=== PATIENT | female | born 1995 | race Caucasian/White ===

== ENCOUNTER 2022-10-22 13:20 | Inpatient (IN) ==
--- NOTE | 2022-10-22 13:36 | Emergency Department Note ---
Impression & Plan Depression ADMIT ED Provider Note HPI: The patient is a 27-year-old female with history of bipolar disorder, who presents emergency department with a chief complaint of suicidal thoughts. Patient states she is currently about 18 weeks . Patient states that la alejandro found out she was in June when she went to [facility] for psychiatric evaluation. Patient states she has not been taking any psychiatric medications since that time secondary to her . Patient states that she believes she is having issues because she is not on medications, she is having thoughts of self-harm, denies a specific plan to kill herself but states that she is frequently having impulsive thoughts of harming herself, mentions that several days ago she was banging her head against the door. She states she does not know why she did this. Patient states she is also seeing "shadows" as well as "bugs" which she is not hearing any voices. On arrival here to the ED the patient is alert and oriented, she denies any recent alcohol or drug use, she appears well-groomed, states that she is currently homeless and she has been staying with various relatives and friends on different nights. Patient states that she would like to check her self in for psychiatric evaluation under 201. ROS: - Per HPI *Outpatient medications and allergy history reviewed. *Pertinent external medical records reviewed. PE: General: Alert HEENT: Normocephalic, trachea midline Eyes: Extraocular eye movement is intact, no scleral erythema Pulmonary: Clear to auscultation bilaterally, no wheezing Cardio: Regular rate and rhythm GI: Abdomen is soft, nontender : No suprapubic tenderness MSK: No evidence of trauma or malformation of the extremities, no edema Skin: No evidence of rash Neuro: Alert, no focal deficits Psychiatric: Cooperative Medical Decision Making: Patient presented to the emergency department today with multiple concerns, she does have a history of depression and bipolar disorder, states she has been feeling increasingly depressed recently, she is having some visual hallucinations, she is having intermittent outbursts where she feels impulsive to harm herself. She denies any specific plan to kill herself but states that she is having thoughts of self-harm. In addition, patient states that she is currently homeless, she is also 18 weeks . Patient was medically assessed here in the ED and screening labs were obtained, urine drug screen is positive for amphetamines and marijuana, lab work shows slight hypokalemia 3.1 which was ordered for oral repletion. Patient remained otherwise calm and cooperative and in no acute distress while here in the ED, she was accepted at [address] [place] [address] for inpatient psychiatric care under 201. Diagnosis: 1. Major depression with thoughts of self-harm 2. Homelessness 3. Second trimester Disposition: Admission to psychiatry Davin Ray DO Emergency Medicine Past Med/Surg History Medical History (Updated 10/22/22 @ 18:32 by Davin Ray DO) Bipolar disorder Surgical History (Updated 04/26/22 @ 15:16 by Una Huertas PA-C) History of appendectomy Hx of tonsillectomy Family History (Updated 09/20/22 @ 15:37 by Mojgan Ragsdale LPN) Grandmother (Maternal) Leukemia Heart disease Uncle Diabetes Father Heart disease Grandfather (Paternal) Prostate cancer Denies family history of Ovarian cancer Breast cancer Colorectal cancer Social History (Updated 10/21/22 @ 16:57 by Renay Cleaning) Smoking Status: Current every day smoker Tobacco Type: Cigarettes Cigarettes Per Day: 5-6; Second Hand Exposure: No; Hx Alcohol Use: No Hx Substance Use: No Preferred Language: Swedish marital status: Single marital status details: FOJessica: Pankaj (19) [phone] ok to talk wtih fob's mom if needed. Current Living Situation: Significant Other Current Living Situation Comment: lives with fob, fobs mom and roommate. 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 How many Children do You have: 1 Feels Safe at Home: Yes Gender Identity: Female Allergies Allergies Allergy/AdvReac Type Severity Reaction Status Date / Time medroxyprogesterone AdvReac Verified 10/21/22 16:39 [From Depo-Provera] Home Meds Home Medications Medication Instructions Recorded Confirmed prenat.vits,ravi,[id number] 1 tab PO DAILY 09/20/22 10/22/22 Results & Data (ED) Vital Signs Vital Signs - 24 hr 10/22/22 13:21 Temperature 36.6 C Temperature Source Temporal Artery Scan Pulse Rate 112 H Respiratory Rate 18 Respiratory Effort / Characteristics Non-Labored Spontaneous Respiratory Depth Normal Respiratory Pattern Regular Blood Pressure 136/82 Blood Pressure Mean 100 Blood Pressure Position Sitting Pulse Oximetry 100 Oxygen Delivery Method Room Air Sepsis Recent Fever Within 48 Hours No Sepsis New/Unexplained Change in Mental Status N/A Sepsis Action Taken by Nursing No Action Required Laboratory Data 10/22/22 13:44 10/22/22 13:44 Lab Results 10/22/22 10/22/22 10/22/22 Range/Units 13:44 13:44 13:44 WBC 9.07 (4.8-10.8) K/ul RBC 4.01 L (4.20-5.40) M/uL Hgb 12.7 (12.0-16.0) g/dl Hct 38.0 (37.0-47.0) % MCV 94.8 (80.0-100.0) fL MCH 31.7 (25.0-34.0) pg MCHC 33.4 (32.0-36.0) g/dL RDW Std Deviation 44.5 (36.4-46.3) fL RDW Coeff of Amari 12.7 (11.5-14.5) % Plt Count 260 (130-400) K/uL MPV 9.5 (9.4-12.4) fL Immature Gran % (Auto) 0.7 % Neut % (Auto) 68.5 % Lymph % (Auto) 22.6 % [place] % (Auto) 7.1 % Eos % (Auto) 0.9 % Baso % (Auto) 0.2 % Neut # (Auto) 6.22 (1.40-6.50) K/uL Lymph # (Auto) 2.05 (1.2-3.4) K/uL [place] # (Auto) 0.64 H (0.11-0.59) K/uL Eos # (Auto) 0.08 (0-0.50) K/uL Baso # (Auto) 0.02 (0-0.2) K/uL Immature Gran # (Auto) 0.06 (0.01-0.20) K/uL Sodium 137 (136-145) mmol/L Potassium 3.1 L (3.5-5.1) mmol/L Chloride 102 (98-107) mmol/L Carbon Dioxide 29 (21-32) mmol/L Anion Gap 6 (3-11) BUN 7 (6-23) mg/dl Creatinine 0.49 L (0.6-1.2) mg/dl Est Cr Clr Drug Dosing 182.1 ml/min Est GFR ( Amer) > 150.0 ml/min Est GFR (Non-Af Amer) 135.4 ml/min BUN/Creatinine Ratio 14.3 (10-20) Glucose 92 (70-99(Fasting)) mg/dl Calcium 9.8 (8.5-10.1) mg/dl Total Bilirubin 0.5 (0.2-1.0) mg/dl AST 11 L (13-39) U/L ALT 15 (7-52) U/L Alkaline Phosphatase 48 (34-104) U/L Total Protein 7.6 (6.0-8.3) gm/dl Albumin 4.3 (3.4-5.0) gm/dl Globulin 3.3 (2.5-4.0) gm/dl Albumin/Globulin Ratio 1.3 (0.9-2) TSH 1.124 (0.300-4.500) uIu/ml Urine Color Urine Appearance (Clear) Urine pH (4.5-7.5) Ur Specific [place] (1.000-1.030) Urine Protein (Negative) Urine Glucose (UA) (Negative) Urine Ketones (Negative) Urine Blood (Negative) Urine Nitrite (Negative) Urine Bilirubin (Negative) Urine Urobilinogen (Negative) Ur Leukocyte Esterase (Negative) Urine WBC (Auto) (0-5) /hpf Urine RBC (Auto) (0-4) /hpf U Hyaline Cast (Auto) (0-5) /lpf U Epithel Cells (Auto) (0-5) /lpf Urine Bacteria (Auto) (Negative) Salicylates (3.0-30) mg/dl Urine Opiates Screen (Neg) Ur Methadone, Qual (Neg) Acetaminophen (10-30) ug/ml Urine Barbiturates (Neg) Ur Phencyclidine (PCP) (Neg) U Amphetamin/Meth Scrn (Neg) MDMA (Ecstasy) Screen (Neg) U Benzodiazepines Scrn (Neg) Ur Cocaine Metabolite (Neg) U Marijuana (THC) Screen (Neg) Ethyl Alcohol mg/dL (<10.0) mg/dl SARS-CoV-2, RNA, NAAT (NEGATIVE) 10/22/22 10/22/22 10/22/22 Range/Units 13:44 13:44 13:44 WBC (4.8-10.8) K/ul RBC (4.20-5.40) M/uL Hgb (12.0-16.0) g/dl Hct (37.0-47.0) % MCV (80.0-100.0) fL MCH (25.0-34.0) pg MCHC (32.0-36.0) g/dL RDW Std Deviation (36.4-46.3) fL RDW Coeff of Amari (11.5-14.5) % Plt Count (130-400) K/uL MPV (9.4-12.4) fL Immature Gran % (Auto) % Neut % (Auto) % Lymph % (Auto) % [place] % (Auto) % Eos % (Auto) % Baso % (Auto) % Neut # (Auto) (1.40-6.50) K/uL Lymph # (Auto) (1.2-3.4) K/uL [place] # (Auto) (0.11-0.59) K/uL Eos # (Auto) (0-0.50) K/uL Baso # (Auto) (0-0.2) K/uL Immature Gran # (Auto) (0.01-0.20) K/uL Sodium (136-145) mmol/L Potassium (3.5-5.1) mmol/L Chloride (98-107) mmol/L Carbon Dioxide (21-32) mmol/L Anion Gap (3-11) BUN (6-23) mg/dl Creatinine (0.6-1.2) mg/dl Est Cr Clr Drug Dosing ml/min Est GFR ( Amer) ml/min Est GFR (Non-Af Amer) ml/min BUN/Creatinine Ratio (10-20) Glucose (70-99(Fasting)) mg/dl Calcium (8.5-10.1) mg/dl Total Bilirubin (0.2-1.0) mg/dl AST (13-39) U/L ALT (7-52) U/L Alkaline Phosphatase (34-104) U/L Total Protein (6.0-8.3) gm/dl Albumin (3.4-5.0) gm/dl Globulin (2.5-4.0) gm/dl Albumin/Globulin Ratio (0.9-2) TSH (0.300-4.500) uIu/ml Urine Color Dark Yellow Urine Appearance Cloudy A (Clear) Urine pH 6.0 (4.5-7.5) Ur Specific [place] 1.027 (1.000-1.030) Urine Protein Negative (Negative) Urine Glucose (UA) Negative (Negative) Urine Ketones 1+ H (Negative) Urine Blood Negative (Negative) Urine Nitrite Negative (Negative) Urine Bilirubin Negative (Negative) Urine Urobilinogen Negative (Negative) Ur Leukocyte Esterase 2+ H (Negative) Urine WBC (Auto) >30 H (0-5) /hpf Urine RBC (Auto) 0-4 (0-4) /hpf U Hyaline Cast (Auto) 1-5 (0-5) /lpf U Epithel Cells (Auto) >30 H (0-5) /lpf Urine Bacteria (Auto) 2+ H (Negative) Salicylates < 3.0 L (3.0-30) mg/dl Urine Opiates Screen (Neg) Ur Methadone, Qual (Neg) Acetaminophen < 3 L (10-30) ug/ml Urine Barbiturates (Neg) Ur Phencyclidine (PCP) (Neg) U Amphetamin/Meth Scrn (Neg) MDMA (Ecstasy) Screen (Neg) U Benzodiazepines Scrn (Neg) Ur Cocaine Metabolite (Neg) U Marijuana (THC) Screen (Neg) Ethyl Alcohol mg/dL < 10.0 (<10.0) mg/dl SARS-CoV-2, RNA, NAAT (NEGATIVE) 10/22/22 10/22/22 Range/Units 13:44 16:15 WBC (4.8-10.8) K/ul RBC (4.20-5.40) M/uL Hgb (12.0-16.0) g/dl Hct (37.0-47.0) % MCV (80.0-100.0) fL MCH (25.0-34.0) pg MCHC (32.0-36.0) g/dL RDW Std Deviation (36.4-46.3) fL RDW Coeff of Amari (11.5-14.5) % Plt Count (130-400) K/uL MPV (9.4-12.4) fL Immature Gran % (Auto) % Neut % (Auto) % Lymph % (Auto) % [place] % (Auto) % Eos % (Auto) % Baso % (Auto) % Neut # (Auto) (1.40-6.50) K/uL Lymph # (Auto) (1.2-3.4) K/uL [place] # (Auto) (0.11-0.59) K/uL Eos # (Auto) (0-0.50) K/uL Baso # (Auto) (0-0.2) K/uL Immature Gran # (Auto) (0.01-0.20) K/uL Sodium (136-145) mmol/L Potassium (3.5-5.1) mmol/L Chloride (98-107) mmol/L Carbon Dioxide (21-32) mmol/L Anion Gap (3-11) BUN (6-23) mg/dl Creatinine (0.6-1.2) mg/dl Est Cr Clr Drug Dosing ml/min Est GFR ( Amer) ml/min Est GFR (Non-Af Amer) ml/min BUN/Creatinine Ratio (10-20) Glucose (70-99(Fasting)) mg/dl Calcium (8.5-10.1) mg/dl Total Bilirubin (0.2-1.0) mg/dl AST (13-39) U/L ALT (7-52) U/L Alkaline Phosphatase (34-104) U/L Total Protein (6.0-8.3) gm/dl Albumin (3.4-5.0) gm/dl Globulin (2.5-4.0) gm/dl Albumin/Globulin Ratio (0.9-2) TSH (0.300-4.500) uIu/ml Urine Color Urine Appearance (Clear) Urine pH (4.5-7.5) Ur Specific [place] (1.000-1.030) Urine Protein (Negative) Urine Glucose (UA) (Negative) Urine Ketones (Negative) Urine Blood (Negative) Urine Nitrite (Negative) Urine Bilirubin (Negative) Urine Urobilinogen (Negative) Ur Leukocyte Esterase (Negative) Urine WBC (Auto) (0-5) /hpf Urine RBC (Auto) (0-4) /hpf U Hyaline Cast (Auto) (0-5) /lpf U Epithel Cells (Auto) (0-5) /lpf Urine Bacteria (Auto) (Negative) Salicylates (3.0-30) mg/dl Urine Opiates Screen Neg (Neg) Ur Methadone, Qual Neg (Neg) Acetaminophen (10-30) ug/ml Urine Barbiturates Neg (Neg) Ur Phencyclidine (PCP) Neg (Neg) U Amphetamin/Meth Scrn Pos H (Neg) MDMA (Ecstasy) Screen Neg (Neg) U Benzodiazepines Scrn Neg (Neg) Ur Cocaine Metabolite Neg (Neg) U Marijuana (THC) Screen Pos H (Neg) Ethyl Alcohol mg/dL (<10.0) mg/dl SARS-CoV-2, RNA, NAAT NEGATIVE (NEGATIVE) Administered Medications Discontinued Medications Potassium Chloride (Potassium Chloride Crtab 20 Meq Tabcr) 40 meq PO NOW STA Stop: 10/22/22 15:14 Last Admin: 10/22/22 15:36 Dose: 40 meq Documented By: Discharge Plan Visit Data Chief Complaint: Mental Health Evaluation Stated Complaint: PT WOULD LIKE TO [facility] THEM[facility] ED Provider: Davin Ray Discharge Problem: Depression Forms Stand Alone Forms: My [facility], Suicide Prevention Resources Prescriptions Prescriptions: No Action prenat.vits,ravi,[id number] Tablet 1 tab PO DAILY Referrals Referrals: Eileen Mcdermott MD [Primary Care Provider] - : Depression Qualifiers: Depression Type: other depression Qualified Code(s): F32.89 - Other specified depressive episodes
[2022-10-22 14:10] LABS: Basophils # (auto) 0.02 K/uL (0-0.2); Basophils % (auto) 0.2 %; Eosinophils # (auto) 0.08 K/uL (0-0.50); Eosinophils % (auto) 0.9 %; Hemoglobin 12.7 g/dl (12.0-16.0); Immature Granulocytes # (auto) 0.06 K/uL (0.01-0.20); Immature Granulocytes % (auto) 0.7 %; Lymphocytes # (auto) 2.05 K/uL (1.2-3.4); Lymphocytes % (auto) 22.6 %; Mean Corpuscular Hemoglobin 31.7 pg (25.0-34.0); Mean Corpuscular Hgb Conc 33.4 g/dL (32.0-36.0); Mean Corpuscular Volume 94.8 fL (80.0-100.0); Mean Platelet Volume 9.5 fL (9.4-12.4); Monocytes # (auto) 0.64 K/uL (0.11-0.59); Monocytes % (auto) 7.1 %; Neutrophils # (auto) 6.22 K/uL (1.40-6.50); Neutrophils % (auto) 68.5 %; Platelet Count 260 K/uL (130-400); RDW Coefficient of Variation 12.7 % (11.5-14.5); RDW Standard Deviation 44.5 fL (36.4-46.3); Red Blood Count 4.01 M/uL (4.20-5.40); White Blood Count 9.07 K/ul (4.8-10.8)
[2022-10-22 14:27] LABS: Acetaminophen < 3 ug/ml (10-30); Salicylate < 3.0 mg/dl (3.0-30)
[2022-10-22 14:32] LABS: Alanine Aminotransferase 15 U/L (7-52); Albumin Globulin Ratio 1.3 (0.9-2); Albumin Level 4.3 gm/dl (3.4-5.0); Alkaline Phosphatase 48 U/L (34-104); Anion Gap 6 (3-11); Aspartate Aminotransferase 11 U/L (13-39); BUN Creatinine Ratio 14.3 (10-20); Bilirubin,Total 0.5 mg/dl (0.2-1.0); Blood Urea Nitrogen 7 mg/dl (6-23); Calcium 9.8 mg/dl (8.5-10.1); Carbon Dioxide 29 mmol/L (21-32); Chloride 102 mmol/L (98-107); Creatinine Clr Calc Pharmacy 182.1 ml/min; Est GFR (African American) > 150.0 ml/min; Est GFR (Non-African American) 135.4 ml/min; Globulin 3.3 gm/dl (2.5-4.0); Glucose 92 mg/dl (70-99(Fasting)); Potassium 3.1 mmol/L (3.5-5.1); Sodium 137 mmol/L (136-145); Total Protein 7.6 gm/dl (6.0-8.3)
[2022-10-22] MEDS ORDERED: POTASSIUM CHLORIDE CRTAB 20 MEQ TABCR PO STA (15:13)
[2022-10-22 15:36] LABS: Appearance Urine Cloudy (Clear); Bacteria Urine Automated 2+ (Negative); Bilirubin Urine Negative (Negative); Blood Urine Negative (Negative); Color Urine Dark Yellow; Epithelial Cell Urine Auto >30 /lpf (0-5); Glucose Urine UA Negative (Negative); Ketones Urine 1+ (Negative); Leukocyte Esterase Urine 2+ (Negative); Nitrite Urine Negative (Negative); Protein Urine Negative (Negative); RBC Urine Automated 0-4 /hpf (0-4); Specific Gravity Urine 1.027 (1.000-1.030); Urobilinogen Urine Negative (Negative); WBC Urine Automated >30 /hpf (0-5)
[2022-10-22 15:37] LABS: Amphetamines+Metham, Urine Pos (Neg); Barbiturates, Urine Neg (Neg); Benzodiazepine, Urine Neg (Neg); Cocaine, Urine Neg (Neg); MDMA (Ecstacy), Urine Neg (Neg); Methadone, Urine Neg (Neg); Opiate, Urine Neg (Neg); Phencyclidine, Urine Neg (Neg)
[2022-10-22] MEDS ORDERED: ALUMINUM/MAGNESIUM SUSP 30 ML UDC PO PRN (20:25)
[2022-10-22] MEDS ORDERED: SODIUM CHLORIDE 0.65% NA SOLN 45 ML (OCEAN) PRN (20:25)
[2022-10-22] MEDS ORDERED: BISMUTH SUBSALICYLATE LIQD 236 ML PO PRN (20:25)
[2022-10-22] MEDS ORDERED: MAGNESIUM HYDROXIDE SUSP 30 ML UDC PO PRN (20:25)
[2022-10-23] MEDS: PRENATAL VITAMIN 1 TAB PO SCH (10:52)
--- NOTE | 2022-10-23 11:17 | History & Physical ---
Date of Service October 23, 2022 Impression / Recommendations Impression Jesse is a 27 year old woman with a history of borderline personality disorder, depression, anxiety who is currently (~18 weeks) was admitted for worsening depression and SI with plans in context of multiple stressors including homeless/financial strain, recent murder of a close friend and methamphetamine use two days ago currently on parole. Diagnostically consistent with major depressive disorder, severe as well as borderline personality disorder given significant self-harm, chronic SI, mood lability, quick to anger. She was unable to tolerate a full social history assessment as she became very anger and agitated and self-harmed when social services assistant and I discussed that CYS report would need to be made. She was able to respond to verbal de-escalation. She is deemed unstable and requires psychiatric hospitalization for diagnostic clarification, safety and stabilization, medication management and development of further coping skills. Discussed medication treatment options in detail. Discussed risks, benefits and alternatives. Patient would like to start and consented to sertraline for MDD and anxiety. Reviewed side effects including but not limited to: GI, BAUGH, sexual side effects, and counseled on black box warning of potential for emergence of or increased SI and need to let staff know should this occur or should they feel unsafe. Also discussed importance of seeking emergency care following discharge if this side effect occurs in the future. We also reviewed risks/benefits in including potential for defects (though evidence suggests no higher than for untreated depression in ) as well as risks for labor, persistent pulmonary hypertension, changes in weight and potential for medication to be passed in breast milk which she understands and desires use of medication. The patient's use history suggests problematic substance use. Brief intervention was offered and accepted. Intervention was greater than 5 minutes in length and included assessing readiness to quit, advice on how to reduce or abstain and to set a specific goal for this hospitalization. material worker will also assist in anticipating barriers to reducing or abstaining from substance use and in problem-solving for solutions to those problems while arranging for referral to appropriate treatment. The patient is in contemplative stage with regards to transtheoretical model of change of reducing cannabis use and action stage of avoiding further use of methamphetamine. The patient is advised to decrease consumption due to depressant effects, impact on and risk of interaction with prescription medications. She participated in motivational interviewing and will be provided with recovery materials to continue to educate self on how to cope with their condition without using substances. (1) Recurrent severe major depressive disorder with anxiety: (2) Depression affecting : (3) Methamphetamine use: (4) Cannabis use disorder: Plan 10/23/2022: The patient was admitted to the [facility] ([facility] unit) on q15 min checks (behavioral with suicide precautions) for safety. The patient will participate in group, recreational, and milieu therapies and will be offered additional individual and family sessions as clinically appropriate. -Start sertraline 25mg qd -Provide with Margi BPD screening tool -CYS report made by social services assistant Inventory Assets Strengths: some supportive relationships, willing to get treatment Needs: safety and stabilization, medication adjustment, additional coping skills, increased outpatient services, psychosocial stresors of homeless, financial insecurity Suicide Risk Level Suicide Risk Level: High-Moderate (q15 min suicide checks) (severe depression with SI with plan prior to admission and self-harm but feels safe in the hospital, able to safety contract and agrees to let nursing/staff know should they develop plan, intent or feel unable to remain safe. ) Risk Factors Assessment : Yes Do You Have Access To A Gun?: No Health Problems: No Mental Health Diagnoses: Yes Substance Use Disorders: Yes Previous Attempt: Yes Family History of Suicide: Yes Previous Psychiatric Hospitalization: Yes Protective Factors Assessment Employed: No Stable Relationships: Yes Psychiatric History Identifying Data JESSE MADDOX is a 27-year-old F who is currently homeless and has been staying with friends, has a history of ODD in childhood, borderline personality disorder, depression, and was admitted on 10/22/22 19:15 on a 201 voluntary commitment for depression with SI with plans. Chief Complaint "I've been awful, I can't stop crying and feel totally disconnected from the baby". History of Present Illness Jesse presents for psychiatric admission for worsening depression and SI with plan of jumping into traffic or shooting herself in the context of multiple psychosocial stressors including homelessness/financial insecurity, on parole with recent substance use relapse, currently 18 weeks, father of her current incarcerated, and recent murder of one of her close friends. Denies current access to a gun but notes "I know how I could go about buying one". She is planning to put her baby up for adoption, wants to continue with the . She has been living with different friends but has to continue moving between places due to conflict and lack of cleanliness in the homes. She lost her job in May due to excessive tearfulness at work. She endorses depressive symptoms including tearfulness, anhedonia, decreased motivation, feeling disconnected to her "I'm not connected to the baby at all", helplessness, hopelessness, decreased energy, and decreased sleep (she feels this is due to lack of housing/safe places to sleep) and increased appetite (due to food insecurity). SI has been occurring daily for many years but worsened since late June with intensifying plans in recent weeks. Identifies current as reason for living. She is not currently prescribed any psychiatric medications. Psychiatric ROS notable for no current nor history of symptoms of juanjose, OCD nor eating disorder. History of psychosis years ago with prior depressive episode, none since. Significant history of self-harm via cutting and current self-harm via hair pulling, scratching herself, banging her head into things and punching things (has current scabs on knuckles from recently punching a metal wall). Past Psychiatric History Current Psychiatric Diagnosis: BPD Outpatient Services: [facility] through [facility] Previous Psych Admissions: multiple, estimates 7x, most recently in late June 2022 in [place] for 7 days for depression Do You Have Access To A Gun?: No History of Previous Suicide Attempt: Yes Describe Attempts in the Past: 1x in 2016 via overdose on medication Past Medication Trials: denies any past SSRI trials, hx of antipsychotics but did not help with mood or BPD symptoms in fact she recalls it made things much worse Past Head Trauma/Neuro History History of Concussion/Seizure: No Allergies Allergy/AdvReac Type Severity Reaction Status Date / Time medroxyprogesterone AdvReac Verified 10/21/22 16:39 [From Depo-Provera] Home Medications Medication Instructions Recorded Confirmed Type prenat.vits,ravi,cmt-xcyo-rugwy 1 tab PO DAILY 09/20/22 10/22/22 History Family History Family History of: Other Mood Disorders, Alcoholism/Drug Abuse and Suicide Completion (great grandfather by suicide) Alcohol History Hx of Alcohol Use Over the Past 12 Months: No AUDIT Total Score: 0 Smoking Use Have You Smoked or Used Tobacco Products in the Last 30 Days: Yes tobacco type: cigarettes Smoking Status: Current every day smoker Smoking packs per day: 0.25 Substance History Hx of Prescription Med Misuse Over the Past 12 Months: No Hx of Over the Counter Med Misuse Over the Past 12 Months: No Hx of Inhalent Misuse Over the Past 12 Months: No Hx of Organic Substance Use Over the Past 12 Months: Yes (Daily marijuana to self-medicate for mental health) Hx of Illegal Substances/Street Drug Use Over Past 12 Months: Yes (Meth yesterday) Problems as a Result of Past Substance Use: Life out of Control Reports history of methamphetamine use over the years which was problematic in the past. Recently relapsed on methamphetamine about 2 days ago via smoking after staying with a friend whose mother was using it. Uses cannabis, wishes to stop this. Personal History Living Arrangements: [employer] Highest Grade Completed: High School Graduate Employment Status: Unemployed Marital Status: Single Number Of Children: daughter (she sees but has no formal custody) and currently ~18wks Beliefs That Will Affect Care: None Current Legal Problems: Yes (on parole for aggravated assault, incarceration released January 2022) Hx Legal Problems: Yes Hx Traumatic Life Events: Yes Patient History Medical History (Updated 10/23/22 @ 11:52 by Lucy Mi MD) Attention deficit hyperactivity disorder Bipolar disorder Bipolar disorder Generalized anxiety disorder Surgical History History of appendectomy Hx of tonsillectomy Family History Grandmother (Maternal) Leukemia Heart disease Uncle Diabetes Father Heart disease Grandfather (Paternal) Prostate cancer Denies family history of Ovarian cancer Breast cancer Colorectal cancer Social History Smoking Status: Current every day smoker Tobacco Type: Cigarettes Cigarettes Per Day: 5-6; Second Hand Exposure: No; Hx Alcohol Use: No Hx Substance Use: No Preferred Language: Afghan Communication Ability: Effective Rehabilitation Services Director Required: No Beliefs That Will Affect Care: None marital status: Single marital status details: HYA: Pankaj (19) [phone] ok to talk wtih fob's mom if needed. Current Living Situation: Significant Other Current Living Situation Comment: lives with fob, fobs mom and roommate. 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 How many Children do You have: 1 Feels Safe at Home: No Gender Identity: Female Assistive Devices: None Review of Systems Review of Systems: All systems reviewed & are unremarkable except as noted in HPI & below (bug bites to right and left arms ) Physical Exam Psychiatric: Orientation: alert and oriented x 3 Apperance: appropriately dressed and appropriately groomed Eye Contact: + fair eye contact Motor Behavior: no abnormal motor movements Speech: normal rate/rhythm/volume of speech Affect: + depressed affect, + anxious affect, + tearful affect, + labile affect, + irritable affect and + angry affect Mood: + depressed mood, + anxious mood and + angry mood Thought Process: + circumstantial thought process Thought Content: reality based without delusions Suicidal Thoughts: denies suicidal intent; + reports suicidal thoughts and + reports suicidal plan (none for in the hospital but plans for outside hospital) Homicidal Thoughts: denies homicidal thoughts Hallucinations: no auditory hallucinations and no visual hallucinations Cognition: recent memory grossly intact, remote memory grossly intact, attention grossly intact and language grossly intact Estimated Intelligence: consistent with education level Insight: + limited insight Judgment: + limited judgement Vital Signs (Past 24 Hours): Last Vital Signs Temp 36.9 C 10/23/22 06:49 Pulse 76 10/23/22 06:50 Resp 16 10/23/22 06:49 BP 102/68 10/23/22 06:50 Pulse Ox 100 10/22/22 13:21 O2 Del Method 10/22/22 13:21 Exam Statement: A physical exam was performed in the ED by Dr. Ray for the purposes of medical clearance. I accept that physical as correct and adequate for the purposes of the inpatient physical exam. Results & Data ([facility]) Laboratory Results Laboratory Results - last 24 hr 10/22/22 10/22/22 10/22/22 13:44 13:44 13:44 WBC 9.07 RBC 4.01 L Hgb 12.7 Hct 38.0 MCV 94.8 MCH 31.7 MCHC 33.4 RDW Std Deviation 44.5 RDW Coeff of Amari 12.7 Plt Count 260 MPV 9.5 Immature Gran % (Auto) 0.7 Neut % (Auto) 68.5 Lymph % (Auto) 22.6 [place] % (Auto) 7.1 Eos % (Auto) 0.9 Baso % (Auto) 0.2 Neut # (Auto) 6.22 Lymph # (Auto) 2.05 [place] # (Auto) 0.64 H Eos # (Auto) 0.08 Baso # (Auto) 0.02 Immature Gran # (Auto) 0.06 Sodium 137 Potassium 3.1 L Chloride 102 Carbon Dioxide 29 Anion Gap 6 BUN 7 Creatinine 0.49 L Est Cr Clr Drug Dosing 182.1 Est GFR ( Amer) > 150.0 Est GFR (Non-Af Amer) 135.4 BUN/Creatinine Ratio 14.3 Glucose 92 Calcium 9.8 Total Bilirubin 0.5 AST 11 L ALT 15 Alkaline Phosphatase 48 Total Protein 7.6 Albumin 4.3 Globulin 3.3 Albumin/Globulin Ratio 1.3 TSH 1.124 Urine Color Urine Appearance Urine pH Ur Specific [place] Urine Protein Urine Glucose (UA) Urine Ketones Urine Blood Urine Nitrite Urine Bilirubin Urine Urobilinogen Ur Leukocyte Esterase Urine WBC (Auto) Urine RBC (Auto) U Hyaline Cast (Auto) U Epithel Cells (Auto) Urine Bacteria (Auto) Salicylates Urine Opiates Screen Ur Methadone, Qual Acetaminophen Urine Barbiturates Ur Phencyclidine (PCP) U Amphetamines Confirm U Amphetamin/Meth Scrn U Methamphetamin Confrm MDMA (Ecstasy) Screen U Benzodiazepines Scrn Ur Cocaine Metabolite U Marijuana (THC) Screen U Marijuana THC Carboxy Drug Screen Comment Ethyl Alcohol mg/dL SARS-CoV-2, RNA, NAAT 10/22/22 10/22/22 10/22/22 13:44 13:44 13:44 WBC RBC Hgb Hct MCV MCH MCHC RDW Std Deviation RDW Coeff of Amari Plt Count MPV Immature Gran % (Auto) Neut % (Auto) Lymph % (Auto) [place] % (Auto) Eos % (Auto) Baso % (Auto) Neut # (Auto) Lymph # (Auto) [place] # (Auto) Eos # (Auto) Baso # (Auto) Immature Gran # (Auto) Sodium Potassium Chloride Carbon Dioxide Anion Gap BUN Creatinine Est Cr Clr Drug Dosing Est GFR ( Amer) Est GFR (Non-Af Amer) BUN/Creatinine Ratio Glucose Calcium Total Bilirubin AST ALT Alkaline Phosphatase Total Protein Albumin Globulin Albumin/Globulin Ratio TSH Urine Color Dark Yellow Urine Appearance Cloudy A Urine pH 6.0 Ur Specific [place] 1.027 Urine Protein Negative Urine Glucose (UA) Negative Urine Ketones 1+ H Urine Blood Negative Urine Nitrite Negative Urine Bilirubin Negative Urine Urobilinogen Negative Ur Leukocyte Esterase 2+ H Urine WBC (Auto) >30 H Urine RBC (Auto) 0-4 U Hyaline Cast (Auto) 1-5 U Epithel Cells (Auto) >30 H Urine Bacteria (Auto) 2+ H Salicylates < 3.0 L Urine Opiates Screen Ur Methadone, Qual Acetaminophen < 3 L Urine Barbiturates Ur Phencyclidine (PCP) U Amphetamines Confirm U Amphetamin/Meth Scrn U Methamphetamin Confrm MDMA (Ecstasy) Screen U Benzodiazepines Scrn Ur Cocaine Metabolite U Marijuana (THC) Screen U Marijuana THC Carboxy Drug Screen Comment Ethyl Alcohol mg/dL < 10.0 SARS-CoV-2, RNA, NAAT 10/22/22 10/22/22 10/22/22 13:44 13:44 16:15 WBC RBC Hgb Hct MCV MCH MCHC RDW Std Deviation RDW Coeff of Amari Plt Count MPV Immature Gran % (Auto) Neut % (Auto) Lymph % (Auto) [place] % (Auto) Eos % (Auto) Baso % (Auto) Neut # (Auto) Lymph # (Auto) [place] # (Auto) Eos # (Auto) Baso # (Auto) Immature Gran # (Auto) Sodium Potassium Chloride Carbon Dioxide Anion Gap BUN Creatinine Est Cr Clr Drug Dosing Est GFR ( Amer) Est GFR (Non-Af Amer) BUN/Creatinine Ratio Glucose Calcium Total Bilirubin AST ALT Alkaline Phosphatase Total Protein Albumin Globulin Albumin/Globulin Ratio TSH Urine Color Urine Appearance Urine pH Ur Specific [place] Urine Protein Urine Glucose (UA) Urine Ketones Urine Blood Urine Nitrite Urine Bilirubin Urine Urobilinogen Ur Leukocyte Esterase Urine WBC (Auto) Urine RBC (Auto) U Hyaline Cast (Auto) U Epithel Cells (Auto) Urine Bacteria (Auto) Salicylates Urine Opiates Screen Neg Ur Methadone, Qual Neg Acetaminophen Urine Barbiturates Neg Ur Phencyclidine (PCP) Neg U Amphetamines Confirm Pending U Amphetamin/Meth Scrn Pos H U Methamphetamin Confrm Pending MDMA (Ecstasy) Screen Neg U Benzodiazepines Scrn Neg Ur Cocaine Metabolite Neg U Marijuana (THC) Screen Pos H U Marijuana THC Carboxy Pending Drug Screen Comment Pending Ethyl Alcohol mg/dL SARS-CoV-2, RNA, NAAT NEGATIVE Current Inpatient Medications Current Inpatient Medications: Current Inpatient Medications Acetaminophen (Acetaminophen 325 Mg Tab) 650 mg PO Q4H PRN PRN Reason: Headache or Minor Fever Stop: 11/21/22 20:24 Al Hydrox/Mg Hydrox/Simethicone (Aluminum/Magnesium Susp 30 Ml Udc) 30 ml PO Q4H PRN PRN Reason: GI Upset Stop: 11/21/22 20:24 Bismuth Subsalicylate (Bismuth Subsalicylate Liqd 236 Ml) 15 ml PO PRN PRN PRN Reason: Loose Stool Stop: 11/21/22 20:24 Magnesium Hydroxide (Magnesium Hydroxide Susp 30 Ml Udc) 30 ml PO DAILY PRN PRN Reason: Constipation Stop: 11/21/22 20:24 Prenat Multivit/Hatch/Iron/Folic Ac ( Vitamin 1 Tab) 1 tab PO DAILY ALEX Stop: 11/22/22 09:44 Last Admin: 10/23/22 10:52 Dose: 1 tab Sodium Chloride (Sodium Chloride 0.65% Na Soln 45 Ml ([place])) 1 - 2 sprays NA PRN PRN PRN Reason: Nasal Dryness/Congestion Stop: 11/21/22 20:24 Zinc Acetate/Diphenhydramine (Diphenhydramine 2%/Zinc 0.1% Cream 28gm Tube) 1 appln EXT BID PRN PRN Reason: bug bites on arms Stop: 11/22/22 09:38 Last Admin: 10/23/22 10:56 Dose: 1 appln
[2022-10-23] MEDS: SERTRALINE HCL 50 MG TABLET PO SCH (12:23)
[2022-10-23] MEDS: ACETAMINOPHEN 325 MG TAB PO PRN (17:50)
[2022-10-23] MEDS ORDERED: diphenhydrAMINE Capsule 25 MG CAP PO PRN (18:39)
[2022-10-23] MEDS: OLANZapine 5 MG TABLET PO PRN (18:46)
[2022-10-23] MEDS: NICOTINE POLACRILEX 2 MG GUM MT PRN (19:57)
[2022-10-24] MEDS: PRENATAL VITAMIN 1 TAB PO SCH (08:56)
[2022-10-24] MEDS: SERTRALINE HCL 50 MG TABLET PO SCH (08:56)
[2022-10-24] MEDS: ACETAMINOPHEN 325 MG TAB PO PRN (10:03)
[2022-10-24] MEDS: NICOTINE POLACRILEX 2 MG GUM MT PRN ×2 (13:51→21:25)
--- NOTE | 2022-10-24 17:05 | Psychiatric Progress Note ---
Date of Service October 24, 2022 Impression / Recommendations Impression Jesse is a 27 year old woman with a history of borderline personality disorder, depression, anxiety who is currently (~18 weeks) was admitted for worsening depression and SI with plans in context of multiple stressors including homeless/financial strain, recent murder of a close friend and methamphetamine use two days ago currently on parole. Diagnostically consistent with major depressive disorder, severe as well as borderline personality disorder given significant self-harm, chronic SI, mood lability, quick to anger. She was unable to tolerate a full social history assessment as she became very anger and agitated and self-harmed when renal social worker and I discussed that CYS report would need to be made. She was able to respond to verbal de-escalation. She is deemed unstable and requires psychiatric hospitalization for diagnostic clarification, safety and stabilization, medication management and development of further coping skills. 10/24/22: Significant self-harming and agitation with behavioral escalation yesterday evening, still very depressed and irritable today with ongoing SI but no behavioral events today. Tolerating initiation of sertraline. Reviewed olanzapine prn for agitation or severe urges for self-harm and reviewed safety data for this. (1) Recurrent severe major depressive disorder with anxiety: (2) Depression affecting : (3) Methamphetamine use: (4) Cannabis use disorder: Plan 10/24/22: Continue with sertraline 25mg qd. 10/23/2022: The patient was admitted to the [facility] ([facility]) on q15 min checks (behavioral with suicide precautions) for safety. The patient will participate in group, recreational, and milieu therapies and will be offered additional individual and family sessions as clinically appropriate. -Start sertraline 25mg qd -Provide with Margi BPD screening tool -CYS report made by renal social worker Inventory Assets Strengths: some supportive relationships, willing to get treatment Needs: safety and stabilization, medication adjustment, additional coping skills, increased outpatient services, psychosocial stresors of homeless, financial insecurity Suicide Risk Level Suicide Risk Level: High-Moderate (q15 min suicide checks) (severe depression with SI with plan prior to admission and self-harm but feels safe in the hospital, able to safety contract and agrees to let nursing/staff know should they develop plan, intent or feel unable to remain safe. ) Risk Factors Assessment : Yes Do You Have Access To A Gun?: No Health Problems: No Mental Health Diagnoses: Yes Substance Use Disorders: Yes Previous Attempt: Yes Family History of Suicide: Yes Previous Psychiatric Hospitalization: Yes Protective Factors Assessment Employed: No Stable Relationships: Yes Interval History Identifying Information JESSE MADDOX is a 27-year-old F who is currently homeless and has been staying with friends, has a history of ODD in childhood, borderline personality disorder, depression, and was admitted on 10/22/22 19:15 on a 201 voluntary commitment for depression with SI with plans. Chief Complaint "I slept all day". Review of Systems Sleep Information Total Hours of Sleep: 8.5 Meal Information Percent Meal Consumed - Breakfast: 75 Percent Meal Consumed - Lunch: 100 Percent Meal Consumed - Dinner: 50 Subjective Subjective Patient was seen & assessed and interval progress reviewed with treatment team nursing and social work. Behavioral event last evening after father of her daughter called to tell her CYS is no longer going to allow her to have unsupervised visits. She screamed loudly, slammed her door, hit her head against the wall as form of self-harm, pulled her hair out. Made statements to RN of not wanting to be due to desire to use methamphetamine as well as other statements such as "I'd like to rip this thing out of me and flush it down the toilet." "I'm going to pretend that I'm ok and get out of here and blow my fucking brains out." per escalator constructor. Her room was moved to the DRE area and she took prn olanzapine 5mg po with improvement in behaviors and spent some time in the quiet room. Today she reports ongoing low mood due to CYS call and sadness about how this will impact her ability to see her daughter. Denies any side effects from the sertraline. Found the prn olanzapine helpful. Denies thoughts of self-harm today. Provided with BPD screening tool and agrees to fill this out so we can discuss it further. Endorses SI but feels able to remain safe here. Feels more neutral about her current today. Physical Exam Psychiatric Orientation: alert and oriented x 3 Apperance: appropriately dressed and appropriately groomed Eye Contact: + fair eye contact Motor Behavior: no abnormal motor movements Speech: normal rate/rhythm/volume of speech Affect: + depressed affect, + flat affect, + tearful affect and + angry affect Mood: + depressed mood, + irritable mood and + angry mood Thought Process: + circumstantial thought process Thought Content: reality based without delusions Suicidal Thoughts: denies suicidal intent; + reports suicidal thoughts and + reports suicidal plan (none for in the hospital but plans for outside hospital) Homicidal Thoughts: denies homicidal thoughts Hallucinations: no auditory hallucinations and no visual hallucinations Cognition: recent memory grossly intact, remote memory grossly intact, attention grossly intact and language grossly intact Estimated Intelligence: consistent with education level Insight: + limited insight Judgment: + limited judgement Vital Signs (Past 24 Hours) Last Vital Signs Temp 36.7 C 10/24/22 06:33 Pulse 73 10/24/22 06:34 Resp 16 10/24/22 06:33 BP 118/80 10/24/22 06:34 Pulse Ox 100 10/22/22 13:21 O2 Del Method 10/22/22 13:21 Results & Data ([facility]) Laboratory Results Laboratory Results - last 24 hr 10/23/22 18:15 Nasal Screen MRSA (PCR) Negative Current Inpatient Medications Current Inpatient Medications: Current Inpatient Medications Acetaminophen (Acetaminophen 325 Mg Tab) 650 mg PO Q4H PRN PRN Reason: Headache or Minor Fever Stop: 11/21/22 20:24 Last Admin: 10/24/22 10:03 Dose: 650 mg Al Hydrox/Mg Hydrox/Simethicone (Aluminum/Magnesium Susp 30 Ml Udc) 30 ml PO Q4H PRN PRN Reason: GI Upset Stop: 11/21/22 20:24 Last Admin: 10/23/22 17:50 Dose: 30 ml Bismuth Subsalicylate (Bismuth Subsalicylate Liqd 236 Ml) 15 ml PO PRN PRN PRN Reason: Loose Stool Stop: 11/21/22 20:24 Diphenhydramine HCl (Diphenhydramine Capsule 25 Mg Cap) 50 mg PO BID PRN PRN Reason: Agitation Stop: 11/22/22 18:38 Magnesium Hydroxide (Magnesium Hydroxide Susp 30 Ml Udc) 30 ml PO DAILY PRN PRN Reason: Constipation Stop: 11/21/22 20:24 Nicotine Polacrilex (Nicotine Polacrilex 2 Mg Gum) 1 piece MT PRN PRN PRN Reason: Nicotine withdrawal Stop: 11/22/22 19:40 Last Admin: 10/24/22 13:51 Dose: 1 piece Olanzapine (Olanzapine 5 Mg Tablet) 5 mg PO BID PRN PRN Reason: Agitation Stop: 11/22/22 20:59 Last Admin: 10/23/22 18:46 Dose: 5 mg Prenat Multivit/Still Operator Batch Or Continuous/Iron/Folic Ac ( Vitamin 1 Tab) 1 tab PO DAILY ALEX Stop: 11/22/22 09:44 Last Admin: 10/24/22 08:56 Dose: 1 tab Sertraline HCl (Sertraline Hcl 50 Mg Tablet) 25 mg PO QAM ALEX Stop: 11/22/22 11:44 Last Admin: 10/24/22 08:56 Dose: 25 mg Sodium Chloride (Sodium Chloride 0.65% Na Soln 45 Ml ([place])) 1 - 2 sprays NA PRN PRN PRN Reason: Nasal Dryness/Congestion Stop: 11/21/22 20:24 Zinc Acetate/Diphenhydramine (Diphenhydramine 2%/Zinc 0.1% Cream 28gm Tube) 1 appln EXT BID PRN PRN Reason: bug bites on arms Stop: 11/22/22 09:38 Last Admin: 10/23/22 10:56 Dose: 1 appln Mental Health & Subst Abuse Tx Advanced Practice Psychiatric Nurse Name of Advanced Practice Psychiatric Nurse: [facility] Case Management Phone Number for Advanced Practice Psychiatric Nurse: Date of Appointment with Advanced Practice Psychiatric Nurse: 10/30/22 Time of Appointment with Advanced Practice Psychiatric Nurse: 1:00 PM Case Management Appointment Comment: [address], [address], [place] [id number]
[2022-10-25] MEDS: PRENATAL VITAMIN 1 TAB PO SCH (08:30)
[2022-10-25] MEDS: SERTRALINE HCL 50 MG TABLET PO SCH (08:30)
[2022-10-25] MEDS: OLANZapine 5 MG TABLET PO PRN (09:20)
[2022-10-25 11:32] LABS: Amphetamine Urine, Confirm 1425 ng/mL (<250); Marijuana Quant, GCMS Urine 1717 ng/mL (<5); Methamphetamine, Ur Confirm 11333 ng/mL (<250)
--- NOTE | 2022-10-25 12:43 | Psychiatric Progress Note ---
Date of Service October 25, 2022 Impression / Recommendations Impression Jesse is a 27 year old woman with a history of borderline personality disorder, depression, anxiety who is currently (~18 weeks) was admitted for worsening depression and SI with plans in context of multiple stressors including homeless/financial strain, recent murder of a close friend and methamphetamine use two days ago currently on parole. Diagnostically consistent with major depressive disorder, severe as well as borderline personality disorder given significant self-harm, chronic SI, mood lability, quick to anger. She is deemed unstable and requires psychiatric hospitalization for diagnostic clarification, safety and stabilization, medication management and development of further coping skills. 10/25/22:Ongoing severe mood lability, splitting, and with periods of intense behavioral escalation with self-harming and statements of SI (particularly when distressed, later tends to recant these) felt to be consistent with borderline personality disorder. Tolerating sertraline. Ongoing motivational interviewing for methamphetamine use. Confirmatory UDS testing came back positive for methamphetamine and amphetamine. (1) Recurrent severe major depressive disorder with anxiety: (2) Depression affecting : (3) Borderline personality disorder: (4) Methamphetamine use: (5) Cannabis use disorder: Plan 10/25/22: Continue current medications and tx plan. Ongoing motivational interviewing. Consider increase of sertraline tomorrow. 10/24/22: Continue with sertraline 25mg qd. 10/23/2022: The patient was admitted to the [facility] ([facility] mental health unit) on q15 min checks (behavioral with suicide precautions) for safety. The patient will participate in group, recreational, and milieu therapies and will be offered additional individual and family sessions as clinically appropriate. -Start sertraline 25mg qd -Provide with Margi BPD screening tool -CYS report made by addiction social worker Inventory Assets Strengths: some supportive relationships, willing to get treatment Needs: safety and stabilization, medication adjustment, additional coping skills, increased outpatient services, psychosocial stresors of homeless, financial insecurity Suicide Risk Level Suicide Risk Level: High-Moderate (q15 min suicide checks) (severe depression with SI with plan prior to admission and self-harm but feels safe in the hospital, able to safety contract and agrees to let nursing/staff know should they develop plan, intent or feel unable to remain safe. ) Risk Factors Assessment : Yes Do You Have Access To A Gun?: No Health Problems: No Mental Health Diagnoses: Yes Substance Use Disorders: Yes Previous Attempt: Yes Family History of Suicide: Yes Previous Psychiatric Hospitalization: Yes Protective Factors Assessment Employed: No Stable Relationships: Yes Interval History Identifying Information JESSE MADDOX is a 27-year-old F who is currently homeless and has been staying with friends, has a history of ODD in childhood, borderline personality disorder, depression, and was admitted on 10/22/22 19:15 on a 201 voluntary commitment for depression with SI with plans. Chief Complaint "Doesn't anyone understand what it's like to have a drug addiction!". Review of Systems Sleep Information Total Hours of Sleep: 6.5 Meal Information Percent Meal Consumed - Breakfast: 75 Percent Meal Consumed - Lunch: 100 Percent Meal Consumed - Dinner: 85 Subjective Subjective Patient was seen & assessed and interval progress reviewed with treatment team nursing and social work. Continues to have periods of acute emotional and behavioral dysregulation with screaming, shouting, crying and this morning pulling out some of her hair. Oscillates rapidly with significant lability and periods of abrupt and extreme anger. Considering option of residential substance use treatment given methamphetamine use but concerned about how this could negatively impact her parole terms. No side effects from the sertraline. Physical Exam Psychiatric Orientation: alert and oriented x 3 Apperance: appropriately dressed and appropriately groomed Eye Contact: + fair eye contact Motor Behavior: no abnormal motor movements Speech: normal rate/rhythm/volume of speech Affect: + depressed affect, + flat affect, + tearful affect, + labile affect and + angry affect Mood: + depressed mood, + irritable mood and + angry mood Thought Process: + circumstantial thought process Thought Content: reality based without delusions Suicidal Thoughts: denies suicidal intent; + reports suicidal thoughts and + reports suicidal plan (none for in the hospital but plans for outside hospital) Homicidal Thoughts: denies homicidal thoughts Hallucinations: no auditory hallucinations and no visual hallucinations Cognition: recent memory grossly intact, remote memory grossly intact, attention grossly intact and language grossly intact Estimated Intelligence: consistent with education level Insight: + limited insight Judgment: + limited judgement Vital Signs (Past 24 Hours) Last Vital Signs Temp 37 C 10/25/22 06:39 Pulse 99 H 10/25/22 06:40 Resp 16 10/25/22 06:39 BP 117/74 10/25/22 06:40 Pulse Ox 100 10/22/22 13:21 O2 Del Method 10/22/22 13:21 Results & Data ([facility]) Laboratory Results Laboratory Results - last 24 hr 10/22/22 13:44 U Amphetamines Confirm 1425 H U Methamphetamin Confrm 75472 H U Marijuana THC Carboxy 1717 H Drug Screen Comment SEE NOTE Current Inpatient Medications Current Inpatient Medications: Current Inpatient Medications Acetaminophen (Acetaminophen 325 Mg Tab) 650 mg PO Q4H PRN PRN Reason: Headache or Minor Fever Stop: 11/21/22 20:24 Last Admin: 10/24/22 10:03 Dose: 650 mg Al Hydrox/Mg Hydrox/Simethicone (Aluminum/Magnesium Susp 30 Ml Udc) 30 ml PO Q4H PRN PRN Reason: GI Upset Stop: 11/21/22 20:24 Last Admin: 10/23/22 17:50 Dose: 30 ml Bismuth Subsalicylate (Bismuth Subsalicylate Liqd 236 Ml) 15 ml PO PRN PRN PRN Reason: Loose Stool Stop: 11/21/22 20:24 Diphenhydramine HCl (Diphenhydramine Capsule 25 Mg Cap) 50 mg PO BID PRN PRN Reason: Agitation Stop: 11/22/22 18:38 Magnesium Hydroxide (Magnesium Hydroxide Susp 30 Ml Udc) 30 ml PO DAILY PRN PRN Reason: Constipation Stop: 11/21/22 20:24 Nicotine Polacrilex (Nicotine Polacrilex 2 Mg Gum) 1 piece MT PRN PRN PRN Reason: Nicotine withdrawal Stop: 11/22/22 19:40 Last Admin: 10/24/22 21:25 Dose: 1 piece Olanzapine (Olanzapine 5 Mg Tablet) 5 mg PO BID PRN PRN Reason: Agitation Stop: 11/22/22 20:59 Last Admin: 10/25/22 09:20 Dose: 5 mg Prenat Multivit/[place]/Iron/Folic Ac ( Vitamin 1 Tab) 1 tab PO DAILY ALEX Stop: 11/22/22 09:44 Last Admin: 10/25/22 08:30 Dose: 1 tab Sertraline HCl (Sertraline Hcl 50 Mg Tablet) 25 mg PO QAM ALEX Stop: 11/22/22 11:44 Last Admin: 10/25/22 08:30 Dose: 25 mg Sodium Chloride (Sodium Chloride 0.65% Na Soln 45 Ml ([place])) 1 - 2 sprays NA PRN PRN PRN Reason: Nasal Dryness/Congestion Stop: 11/21/22 20:24 Zinc Acetate/Diphenhydramine (Diphenhydramine 2%/Zinc 0.1% Cream 28gm Tube) 1 appln EXT BID PRN PRN Reason: bug bites on arms Stop: 11/22/22 09:38 Last Admin: 10/23/22 10:56 Dose: 1 appln Mental Health & Subst Abuse Tx Harbour Master Name of Harbour Master: [facility] Case Management Phone Number for Harbour Master: Date of Appointment with Harbour Master: 10/30/22 Time of Appointment with Harbour Master: 1:00 PM Case Management Appointment Comment: [address], [address], [place] [id number]
[2022-10-25] MEDS: NICOTINE POLACRILEX 2 MG GUM MT PRN (19:27)
--- NOTE | 2022-10-26 09:07 | Psychiatric Progress Note ---
Date of Service October 26, 2022 Impression / Recommendations Impression Jesse is a 27 year old woman with a history of borderline personality disorder, depression, anxiety who is currently (~18 weeks) was admitted for worsening depression and SI with plans in context of multiple stressors including homeless/financial strain, recent murder of a close friend and methamphetamine use two days ago currently on parole. Diagnostically consistent with major depressive disorder, severe as well as borderline personality disorder given significant self-harm, chronic SI, mood lability, quick to anger. She is deemed unstable and requires psychiatric hospitalization for diagnostic clarification, safety and stabilization, medication management and development of further coping skills. 10/26/22:Ongoing significant mood lability but no self-harming behaviors today even when very distressed. Still making statements of SI when angry but denies when calm. May be component of methamphetamine withdrawal though she reports only one use prior to admission. Tolerating sertraline and consents to dose titration. Spoke with on-call OB provider and L&D nurse came to Doppler with heartbeat present. Ongoing motivational interviewing for methamphetamine use. (1) Recurrent severe major depressive disorder with anxiety: (2) Depression affecting : (3) Borderline personality disorder: (4) Methamphetamine use: (5) Cannabis use disorder: Plan 10/26/22: Increase sertraline to 50mg qd starting tomorrow. 10/25/22: Continue current medications and tx plan. Ongoing motivational interviewing. Consider increase of sertraline tomorrow. 10/24/22: Continue with sertraline 25mg qd. 10/23/2022: The patient was admitted to the [facility] ([facility] mental health unit) on q15 min checks (behavioral with suicide precautions) for safety. The patient will participate in group, recreational, and milieu therapies and will be offered additional individual and family sessions as clinically appropriate. -Start sertraline 25mg qd -Provide with Margi BPD screening tool -CYS report made by social media analyst Inventory Assets Strengths: some supportive relationships, willing to get treatment Needs: safety and stabilization, medication adjustment, additional coping skills, increased outpatient services, psychosocial stresors of homeless, financial insecurity Suicide Risk Level Suicide Risk Level: High-Moderate (q15 min suicide checks) (severe depression with SI with plan prior to admission and self-harm but feels safe in the hospital, able to safety contract and agrees to let nursing/staff know should they develop plan, intent or feel unable to remain safe. ) Risk Factors Assessment : Yes Do You Have Access To A Gun?: No Health Problems: No Mental Health Diagnoses: Yes Substance Use Disorders: Yes Previous Attempt: Yes Family History of Suicide: Yes Previous Psychiatric Hospitalization: Yes Protective Factors Assessment Employed: No Stable Relationships: Yes Interval History Identifying Information JESSE MADDOX is a 27-year-old F who is currently homeless and has been staying with friends, has a history of ODD in childhood, borderline personality disorder, depression, and was admitted on 10/22/22 19:15 on a 201 voluntary commitment for depression with SI with plans. Chief Complaint "I have no self respect". Review of Systems Sleep Information Total Hours of Sleep: 7 Meal Information Percent Meal Consumed - Breakfast: 75 Percent Meal Consumed - Lunch: 100 Percent Meal Consumed - Dinner: 90 Subjective Subjective Patient was seen & assessed and interval progress reviewed with treatment team nursing and social work. Slept and was isolative yesterday but was able to do a few phone calls without any outbursts. Did attend evening group last night. Today mood remains labile but was able to tolerate a long discussion about the Margi BPD screen and the ways BPD manifests in her life with fears and attempts to avoid rejection and abandonment, mood swings with periods of intense anger and low self-worth resulting in seeking attention and validation from romantic partners who are "bad choices". She denies any cravings for methamphetamine and continues to report only one time use prior to admission. Is willing to consider residential treatment versus IOP. Very tearful after speaking with her grandmother and shouting at times. Requested to process this call with me, noted her frustration that due to relapse her family now wants her to get residential treatment and concern that her boating safety officer may find out she used methamphetamine if CYS shares this information. No side effects from the sertraline and agrees to dose titration. Feeling less movements today, requests possibility to hear heart beat for reassurance. Denies any pain or abnormal bleeding. Physical Exam Psychiatric Orientation: alert and oriented x 3 Apperance: appropriately dressed and appropriately groomed Eye Contact: + fair eye contact Motor Behavior: no abnormal motor movements Speech: normal rate/rhythm/volume of speech Affect: + depressed affect, + flat affect, + tearful affect, + labile affect and + angry affect Mood: + depressed mood, + irritable mood and + angry mood Thought Process: + circumstantial thought process Thought Content: reality based without delusions Suicidal Thoughts: denies suicidal plan and denies suicidal intent; + reports suicidal thoughts (still making statements intermittently, especially when upset or angry, ) Homicidal Thoughts: denies homicidal thoughts Hallucinations: no auditory hallucinations and no visual hallucinations Cognition: recent memory grossly intact, remote memory grossly intact, attention grossly intact and language grossly intact Estimated Intelligence: consistent with education level Insight: + limited insight Judgment: + limited judgement Vital Signs (Past 24 Hours) Last Vital Signs Temp 37.2 C 10/26/22 06:00 Pulse 83 10/26/22 06:00 Resp 18 10/26/22 06:00 BP 104/65 10/26/22 06:24 Pulse Ox 96 10/26/22 06:00 O2 Del Method 10/26/22 06:00 Results & Data ([facility]) Laboratory Results Laboratory Results - last 24 hr 10/22/22 13:44 U Amphetamines Confirm 1425 H U Methamphetamin Confrm 58189 H U Marijuana THC Carboxy 1717 H Drug Screen Comment SEE NOTE Current Inpatient Medications Current Inpatient Medications: Current Inpatient Medications Acetaminophen (Acetaminophen 325 Mg Tab) 650 mg PO Q4H PRN PRN Reason: Headache or Minor Fever Stop: 11/21/22 20:24 Last Admin: 10/24/22 10:03 Dose: 650 mg Al Hydrox/Mg Hydrox/Simethicone (Aluminum/Magnesium Susp 30 Ml Udc) 30 ml PO Q4H PRN PRN Reason: GI Upset Stop: 11/21/22 20:24 Last Admin: 10/23/22 17:50 Dose: 30 ml Bismuth Subsalicylate (Bismuth Subsalicylate Liqd 236 Ml) 15 ml PO PRN PRN PRN Reason: Loose Stool Stop: 11/21/22 20:24 Diphenhydramine HCl (Diphenhydramine Capsule 25 Mg Cap) 50 mg PO BID PRN PRN Reason: Agitation Stop: 11/22/22 18:38 Magnesium Hydroxide (Magnesium Hydroxide Susp 30 Ml Udc) 30 ml PO DAILY PRN PRN Reason: Constipation Stop: 11/21/22 20:24 Nicotine Polacrilex (Nicotine Polacrilex 2 Mg Gum) 1 piece MT PRN PRN PRN Reason: Nicotine withdrawal Stop: 11/22/22 19:40 Last Admin: 10/25/22 19:27 Dose: 1 piece Olanzapine (Olanzapine 5 Mg Tablet) 5 mg PO BID PRN PRN Reason: Agitation Stop: 11/22/22 20:59 Last Admin: 10/25/22 09:20 Dose: 5 mg Prenat Multivit/[place]/Iron/Folic Ac ( Vitamin 1 Tab) 1 tab PO DAILY ALEX Stop: 11/22/22 09:44 Last Admin: 10/25/22 08:30 Dose: 1 tab Sertraline HCl (Sertraline Hcl 50 Mg Tablet) 25 mg PO QAM ALEX Stop: 11/22/22 11:44 Last Admin: 10/25/22 08:30 Dose: 25 mg Sodium Chloride (Sodium Chloride 0.65% Na Soln 45 Ml ([place])) 1 - 2 sprays NA PRN PRN PRN Reason: Nasal Dryness/Congestion Stop: 11/21/22 20:24 Zinc Acetate/Diphenhydramine (Diphenhydramine 2%/Zinc 0.1% Cream 28gm Tube) 1 appln EXT BID PRN PRN Reason: bug bites on arms Stop: 11/22/22 09:38 Last Admin: 10/23/22 10:56 Dose: 1 appln Mental Health & Subst Abuse Tx Community Health Advisor Name of Community Health Advisor: [facility] D&A Case Management Phone Number for Community Health Advisor: Date of Appointment with Community Health Advisor: 10/30/22 Time of Appointment with Community Health Advisor: 1:00 PM Case Management Appointment Comment: [address], [address], [place] [id number]
[2022-10-26] MEDS: PRENATAL VITAMIN 1 TAB PO SCH (09:14)
[2022-10-26] MEDS: SERTRALINE HCL 50 MG TABLET PO SCH (09:15)
[2022-10-26] MEDS: NICOTINE POLACRILEX 2 MG GUM MT PRN ×2 (11:22→15:20)
[2022-10-27] MEDS: PRENATAL VITAMIN 1 TAB PO SCH (08:32)
[2022-10-27] MEDS: SERTRALINE HCL 50 MG TABLET PO SCH (08:33)
--- NOTE | 2022-10-27 08:50 | Psychiatric Progress Note ---
Date of Service October 27, 2022 Impression / Recommendations Impression Jesse is a 27 year old woman with a history of borderline personality disorder, depression, anxiety who is currently (~18 weeks) was admitted for worsening depression and SI with plans in context of multiple stressors including homeless/financial strain, recent murder of a close friend and methamphetamine use two days ago currently on parole. Diagnostically consistent with major depressive disorder, severe as well as borderline personality disorder given significant self-harm, chronic SI, mood lability, quick to anger. She is deemed unstable and requires psychiatric hospitalization for diagnostic clarification, safety and stabilization, medication management and development of further coping skills. MNPR due to significant mood lability with periods of agitation requiring DRE 10/27/22:Ongoing mood lability but able to participate in more groups and tolerate more in-depth discussions today without threatening behavior or self-harm. Ongoing extensive motivational interviewing. (1) Recurrent severe major depressive disorder with anxiety: (2) Depression affecting : (3) Borderline personality disorder: (4) Methamphetamine use: (5) Cannabis use disorder: Plan 10/27/22: Continue current medications and tx plan. 10/26/22: Increase sertraline to 50mg qd starting tomorrow. 10/25/22: Continue current medications and tx plan. Ongoing motivational interviewing. Consider increase of sertraline tomorrow. 10/24/22: Continue with sertraline 25mg qd. 10/23/2022: The patient was admitted to the [facility] ([facility] mental health unit) on q15 min checks (behavioral with suicide precautions) for safety. The patient will participate in group, recreational, and milieu therapies and will be offered additional individual and family sessions as clinically appropriate. -Start sertraline 25mg qd -Provide with Margi BPD screening tool -CYS report made by social media assistant Inventory Assets Strengths: some supportive relationships, willing to get treatment Needs: safety and stabilization, medication adjustment, additional coping skills, increased outpatient services, psychosocial stresors of homeless, financial insecurity Suicide Risk Level Suicide Risk Level: Moderate (q15 min suicide checks) (mood lability with periods of SI with plan prior to admission and self-harm but feels safe in the hospital, able to safety contract and agrees to let nursing/staff know should they develop plan, intent or feel unable to remain safe. ) Risk Factors Assessment : Yes Do You Have Access To A Gun?: No Health Problems: No Mental Health Diagnoses: Yes Substance Use Disorders: Yes Previous Attempt: Yes Family History of Suicide: Yes Previous Psychiatric Hospitalization: Yes Protective Factors Assessment Employed: No Stable Relationships: Yes Interval History Identifying Information JESSE MADDOX is a 27-year-old F who is currently homeless and has been staying with friends, has a history of ODD in childhood, borderline personality disorder, depression, and was admitted on 10/22/22 19:15 on a 201 voluntary commitment for depression with SI with plans. Chief Complaint "I'm just really tired". Review of Systems Sleep Information Total Hours of Sleep: 7 Meal Information Percent Meal Consumed - Breakfast: 100 Percent Meal Consumed - Lunch: 100 Percent Meal Consumed - Dinner: 100 Subjective Subjective Patient was seen & assessed and interval progress reviewed with treatment team nursing and social work. No other outbursts yesterday afternoon and more pleasant in the evening. This morning had episode of emesis after taking AM medications. Mid-morning was on the phone and at one point became very upset, yelling and shouting but then a few minutes later was laughing and did not engage in any self-harm. Asked for a received prn zyprexa. Later in afternoon was resting and tired. Planning to call her loans officer tomorrow morning to determine if methamphetamine use will result in her having to return to alf. She's more ambivalent about residential treatment, favoring idea of intensive outpatient treatment. Physical Exam Psychiatric Orientation: alert and oriented x 3 Apperance: appropriately dressed and appropriately groomed Eye Contact: good eye contact Motor Behavior: no abnormal motor movements Speech: normal rate/rhythm/volume of speech Affect: + labile affect and + constricted affect Mood: + depressed mood and + irritable mood Thought Process: + circumstantial thought process Thought Content: reality based without delusions Suicidal Thoughts: denies suicidal plan and denies suicidal intent; + reports suicidal thoughts (still making statements intermittently, especially when upset or angry, ) Homicidal Thoughts: denies homicidal thoughts Hallucinations: no auditory hallucinations and no visual hallucinations Cognition: recent memory grossly intact, remote memory grossly intact, attention grossly intact and language grossly intact Estimated Intelligence: consistent with education level Insight: + limited insight Judgment: + limited judgement Vital Signs (Past 24 Hours) Last Vital Signs Temp 37.5 C 10/27/22 06:00 Pulse 93 H 10/27/22 06:00 Resp 18 10/27/22 06:00 BP 109/71 10/27/22 06:16 Pulse Ox 95 10/27/22 06:00 O2 Del Method 10/27/22 06:00 Results & Data ([facility]) Current Inpatient Medications Current Inpatient Medications: Current Inpatient Medications Acetaminophen (Acetaminophen 325 Mg Tab) 650 mg PO Q4H PRN PRN Reason: Headache or Minor Fever Stop: 11/21/22 20:24 Last Admin: 10/24/22 10:03 Dose: 650 mg Al Hydrox/Mg Hydrox/Simethicone (Aluminum/Magnesium Susp 30 Ml Udc) 30 ml PO Q4H PRN PRN Reason: GI Upset Stop: 11/21/22 20:24 Last Admin: 10/23/22 17:50 Dose: 30 ml Bismuth Subsalicylate (Bismuth Subsalicylate Liqd 236 Ml) 15 ml PO PRN PRN PRN Reason: Loose Stool Stop: 11/21/22 20:24 Diphenhydramine HCl (Diphenhydramine Capsule 25 Mg Cap) 50 mg PO BID PRN PRN Reason: Agitation Stop: 11/22/22 18:38 Last Admin: 10/26/22 14:26 Dose: 50 mg Magnesium Hydroxide (Magnesium Hydroxide Susp 30 Ml Udc) 30 ml PO DAILY PRN PRN Reason: Constipation Stop: 11/21/22 20:24 Nicotine Polacrilex (Nicotine Polacrilex 2 Mg Gum) 1 piece MT PRN PRN PRN Reason: Nicotine withdrawal Stop: 11/22/22 19:40 Last Admin: 10/26/22 15:20 Dose: 1 piece Olanzapine (Olanzapine 5 Mg Tablet) 5 mg PO BID PRN PRN Reason: Agitation Stop: 11/22/22 20:59 Last Admin: 10/25/22 09:20 Dose: 5 mg Prenat Multivit/[place]/Iron/Folic Ac ( Vitamin 1 Tab) 1 tab PO DAILY ALEX Stop: 11/22/22 09:44 Last Admin: 10/27/22 08:32 Dose: 1 tab Sertraline HCl (Sertraline Hcl 50 Mg Tablet) 50 mg PO QAM ALEX Stop: 11/26/22 08:59 Last Admin: 10/27/22 08:33 Dose: 50 mg Sodium Chloride (Sodium Chloride 0.65% Na Soln 45 Ml ([place])) 1 - 2 sprays NA PRN PRN PRN Reason: Nasal Dryness/Congestion Stop: 11/21/22 20:24 Zinc Acetate/Diphenhydramine (Diphenhydramine 2%/Zinc 0.1% Cream 28gm Tube) 1 appln EXT BID PRN PRN Reason: bug bites on arms Stop: 11/22/22 09:38 Last Admin: 10/23/22 10:56 Dose: 1 appln Mental Health & Subst Abuse Tx Cartographic Aide Name of Cartographic Aide: [facility] D[facility]A Case Management Phone Number for Cartographic Aide: Date of Appointment with Cartographic Aide: 10/30/22 Time of Appointment with Cartographic Aide: 1:00 PM Case Management Appointment Comment: [address] [facility] [facility] [facility], [address], [place] [id number]
[2022-10-27] MEDS: OLANZapine 5 MG TABLET PO PRN (11:11)
[2022-10-28] MEDS: SERTRALINE HCL 50 MG TABLET PO SCH (08:40)
--- NOTE | 2022-10-28 08:40 | Psychiatric Progress Note ---
Date of Service October 28, 2022 Impression / Recommendations Impression Jesse is a 27 year old woman with a history of borderline personality disorder, depression, anxiety who is currently (~18 weeks) was admitted for worsening depression and SI with plans in context of multiple stressors including homeless/financial strain, recent murder of a close friend and methamphetamine use two days ago currently on parole. Diagnostically consistent with major depressive disorder, severe as well as borderline personality disorder given significant self-harm, chronic SI, mood lability, quick to anger. She is deemed unstable and requires psychiatric hospitalization for diagnostic clarification, safety and stabilization, medication management and development of further coping skills. MNPR due to significant mood lability and with higher risk of infection and high community prevalence of COVID-19. 10/28/22:less mood lability, calmer, denies SI. No emesis this morning so able to keep down sertraline 50mg dose and tolerating well so far. Ongoing extensive motivational interviewing, she prefers outpatient treatment for substance use. (1) Recurrent severe major depressive disorder with anxiety: (2) Depression affecting : (3) Borderline personality disorder: (4) Methamphetamine use: (5) Cannabis use disorder: Plan 10/28/22: Continue current medications and tx plan. needs a support meeting. 10/27/22: Continue current medications and tx plan. 10/26/22: Increase sertraline to 50mg qd starting tomorrow. 10/25/22: Continue current medications and tx plan. Ongoing motivational interviewing. Consider increase of sertraline tomorrow. 10/24/22: Continue with sertraline 25mg qd. 10/23/2022: The patient was admitted to the [facility] ([facility] mental health unit) on q15 min checks (behavioral with suicide precautions) for safety. The patient will participate in group, recreational, and milieu therapies and will be offered additional individual and family sessions as clinically appropriate. -Start sertraline 25mg qd -Provide with Margi BPD screening tool -CYS report made by social and political studies professor Inventory Assets Strengths: some supportive relationships, willing to get treatment Needs: safety and stabilization, medication adjustment, additional coping skills, incre ased outpatient services, psychosocial stresors of homeless, financial insecurity Suicide Risk Level Suicide Risk Level: Moderate (q15 min suicide checks) (mood lability with periods of SI with plan prior to admission and self-harm but feels safe in the hospital, able to safety contract and agrees to let nursing/staff know should they develop plan, intent or feel unable to remain safe. ) Risk Factors Assessment : Yes Do You Have Access To A Gun?: No Health Problems: No Mental Health Diagnoses: Yes Substance Use Disorders: Yes Previous Attempt: Yes Family History of Suicide: Yes Previous Psychiatric Hospitalization: Yes Protective Factors Assessment Employed: No Stable Relationships: Yes Interval History Identifying Information JESSE MADDOX is a 27-year-old F who is currently homeless and has been staying with friends, has a history of ODD in childhood, borderline personality disorder, depression, and was admitted on 10/22/22 19:15 on a 201 voluntary commitment for depression with SI with plans. Chief Complaint "I'm ok". Review of Systems Sleep Information Total Hours of Sleep: 8 Meal Information Percent Meal Consumed - Breakfast: 100 Percent Meal Consumed - Lunch: 75 Percent Meal Consumed - Dinner: 100 Subjective Subjective Patient was seen & assessed and interval progress reviewed with treatment team nursing and social work. Calmer, participating in groups. Slept well. No nausea or emesis this morning. No side effects from sertraline. Unable to call her special weapons unit officer today as they are out today. She's not as interested in residential treatment right from inpatient, prefers to try outpatient with option to do residential if outpatient is not providing enough support. She's thinking about living with a friend who is a sober support. Prefers to do support meeting with her daughter's father. Denies SI. No episodes of self-harm. Physical Exam Psychiatric Orientation: alert and oriented x 3 Apperance: appropriately dressed and appropriately groomed Eye Contact: good eye contact Motor Behavior: no abnormal motor movements Speech: normal rate/rhythm/volume of speech Affect: + constricted affect Mood: + depressed mood Thought Process: + circumstantial thought process Thought Content: reality based without delusions Suicidal Thoughts: denies suicidal thoughts, denies suicidal plan and denies suicidal intent Homicidal Thoughts: denies homicidal thoughts Hallucinations: no auditory hallucinations and no visual hallucinations Cognition: recent memory grossly intact, remote memory grossly intact, attention grossly intact and language grossly intact Estimated Intelligence: consistent with education level Insight: + limited insight Judgment: + limited judgement Vital Signs (Past 24 Hours) Last Vital Signs Temp 37.3 C 10/28/22 06:00 Pulse 80 10/28/22 06:00 Resp 18 10/28/22 06:00 BP 118/80 10/28/22 06:25 Pulse Ox 97 10/28/22 06:00 O2 Del Method 10/28/22 06:00 Results & Data ([facility]) Current Inpatient Medications Current Inpatient Medications: Current Inpatient Medications Acetaminophen (Acetaminophen 325 Mg Tab) 650 mg PO Q4H PRN PRN Reason: Headache or Minor Fever Stop: 11/21/22 20:24 Last Admin: 10/24/22 10:03 Dose: 650 mg Al Hydrox/Mg Hydrox/Simethicone (Aluminum/Magnesium Susp 30 Ml Udc) 30 ml PO Q4H PRN PRN Reason: GI Upset Stop: 11/21/22 20:24 Last Admin: 10/23/22 17:50 Dose: 30 ml Bismuth Subsalicylate (Bismuth Subsalicylate Liqd 236 Ml) 15 ml PO PRN PRN PRN Reason: Loose Stool Stop: 11/21/22 20:24 Diphenhydramine HCl (Diphenhydramine Capsule 25 Mg Cap) 50 mg PO BID PRN PRN Reason: Agitation Stop: 11/22/22 18:38 Last Admin: 10/26/22 14:26 Dose: 50 mg Magnesium Hydroxide (Magnesium Hydroxide Susp 30 Ml Udc) 30 ml PO DAILY PRN PRN Reason: Constipation Stop: 11/21/22 20:24 Nicotine Polacrilex (Nicotine Polacrilex 2 Mg Gum) 1 piece MT PRN PRN PRN Reason: Nicotine withdrawal Stop: 11/22/22 19:40 Last Admin: 10/26/22 15:20 Dose: 1 piece Olanzapine (Olanzapine 5 Mg Tablet) 5 mg PO BID PRN PRN Reason: Agitation Stop: 11/22/22 20:59 Last Admin: 10/27/22 11:11 Dose: 5 mg Prenat Multivit/[place]/Iron/Folic Ac ( Vitamin 1 Tab) 1 tab PO DAILY ALEX Stop: 11/22/22 09:44 Last Admin: 10/27/22 08:32 Dose: 1 tab Sertraline HCl (Sertraline Hcl 50 Mg Tablet) 50 mg PO QAM ALEX Stop: 11/26/22 08:59 Last Admin: 10/27/22 08:33 Dose: 50 mg Sodium Chloride (Sodium Chloride 0.65% Na Soln 45 Ml ([place])) 1 - 2 sprays NA PRN PRN PRN Reason: Nasal Dryness/Congestion Stop: 11/21/22 20:24 Zinc Acetate/Diphenhydramine (Diphenhydramine 2%/Zinc 0.1% Cream 28gm Tube) 1 appln EXT BID PRN PRN Reason: bug bites on arms Stop: 11/22/22 09:38 Last Admin: 10/23/22 10:56 Dose: 1 appln Mental Health & Subst Abuse Tx Manager Appointment Name of Manager Appointment: [facility] D[facility]A Case Management Phone Number for Manager Appointment: Date of Appointment with Manager Appointment: 10/30/22 Time of Appointment with Manager Appointment: 1:00 PM Case Management Appointment Comment: [address] [facility], [address], [place] [id number]
[2022-10-28] MEDS: PRENATAL VITAMIN 1 TAB PO SCH (09:39)
[2022-10-29] MEDS: PRENATAL VITAMIN 1 TAB PO SCH (09:11)
[2022-10-29] MEDS: SERTRALINE HCL 50 MG TABLET PO SCH (09:11)
[2022-10-29] MEDS: NICOTINE POLACRILEX 2 MG GUM MT PRN (10:17)
--- NOTE | 2022-10-29 10:19 | Discharge Summary ---
Date of Service October 29, 2022 History of Present Illness Sanna presents for psychiatric admission for worsening depression and SI with plan of jumping into traffic or shooting herself in the context of multiple psychosocial stressors including homelessness/financial insecurity, on parole with recent substance use relapse, currently 18 weeks, father of her current incarcerated, and recent murder of one of her close friends. Denies current access to a gun but notes "I know how I could go about buying one". She is planning to put her baby up for adoption, wants to continue with the . She has been living with different friends but has to continue moving between places due to conflict and lack of cleanliness in the homes. She lost her job in May due to excessive tearfulness at work. She endorses depressive symptoms including tearfulness, anhedonia, decreased motivation, feeling disconnected to her "I'm not connected to the baby at all", helplessness, hopelessness, decreased energy, and decreased sleep (she feels this is due to lack of housing/safe places to sleep) and increased appetite (due to food insecurity). SI has been occurring daily for many years but worsened since late June with intensifying plans in recent weeks. Identifies current as reason for living. She is not currently prescribed any psychiatric medications. Psychiatric ROS notable for no current nor history of symptoms of juanjose, OCD nor eating disorder. History of psychosis years ago with prior depressive episode, none since. Significant history of self-harm via cutting and current self-harm via hair pulling, scratching herself, banging her head into things and punching things (has current scabs on knuckles from recently punching a metal wall). Physical Exam Vital Signs (Past 24 Hours) Last Vital Signs Temp 37 C 10/29/22 06:39 Pulse 91 H 10/29/22 06:39 Resp 16 10/29/22 06:39 BP 96/60 L 10/29/22 06:39 Pulse Ox 97 10/28/22 06:00 O2 Del Method 10/28/22 06:00 See admission H&P and DOD summary. Principal Diagnosis Major Depressive Disorder, Methamphetamine Withdrawal Psychiatric Data See daily stay summary. Overall she was engaged with the social/therapeutic milieu of the unit, safety was maintained and she was cooperative with care. She did have a few episodes of extreme emotional and behavioral dysregulation with screaming, slamming doors and self-harming via head banging and pulling out her hair during the first few days of her admission with one instance resulting in her spending some time in the quiet room. However, her mood stabilized significantly during the second-half of her admission with no further self- harming behaviors. Medication changes included initiation of sertraline for depression and olanzapine available as needed for extreme agitation/urges for self-harm and they tolerated this well. If she continues to require olanzapine use in the outpatient setting more than once weekly then would recommend fasting glucose, fasting lipid profile, and weight in one month followed by every 12 weeks and then annually. If symptoms arise recommend checking BP, EKG, prolactin level as clinically indicated or relevant. She had a doppler done during admission per her request and discussion with the [employer]ATE [employer] service which was normal. She declined doing a family or support session. A safety plan was completed prior to discharge. She actively and insightfully participated in safety planning and in discussions about ways to seek support and recognizing warning signs and utilizing coping skills. Extensive motivational interviewing was done regarding substance use and she plans to avoid all substance use and will consider residential substance use treatment if she feels unable to avoid use with outpatient-level services. Reviewed importance of seeking emergency care should SI re-occur, intensify, worsen or should they feel unsafe in the future which they agree to do. On the day of discharge she stated her mood was "really good" and remained future- oriented including moving in with a friend, seeing her ex-partner Ming and engaging in aftercare appointments for psychiatry, case management for substance use, following up with her electronic warfare officer and attending her outpatient OB appointment. Day of Discharge Assessment Today the patient voices readiness for discharge. They note improvement in mood and anxiety. They deny thoughts of harm to self or others. Thoughts are organized and they are clinically improved from admission. There is no evidence of psychosis. They improved in the hospital with support and medication adjustments. They agree to take medications as prescribed and keep follow-up appointments. At the time of the discharge they are deemed to be stable and appropriate for outpatient level of care. They are not deemed to be at imminent risk of harm to self or others. They are aware of emergency and crisis services. Knows to call 911 or go to nearest emergency care center if in a crisis which c annot be handled as an outpatient. Transition of Care Transition Of Care Record: was reviewed with the patient Advance Directives Advance Directives Information Provided: Yes Advance Directives: No Mental Health Advance Directive: No Advance Directives on File: No Living Will: No Power of Bench Assembler Battery: No Advance Directives Reason:: Declines as Mental Health Visit. Suicide Risk Level Suicide Risk Level Comments: Acute risk is low given improvement in mood and denial of SI, lack of access to lethal means and no plans to buy any, plan to avoid substance use, improvement in sleep, hopefulness and reduction in self-harm. Chronic risk is moderate given multiple non-modifiable risk factors: psychiatric co-morbid diagnoses, periods of impulsivity, prior attempt, hx self-harm, emotional reactivity, prior psychiatric hospitalizations, poor social support, cluster B personality disorder, family history of by suicide but also with protective factors including current /desire to protect her baby, sense of responsibility to family and social supports, outpatient care in place, potential for continuing to build on positive coping skills, positive problem solving, capacity to establish therapeutic alliance, willingness to engage with terriedimitrios cruz, capacity for self-observation. Counseled on ways to reduce acute and chronic risk including engaging with outpatient providers, avoiding substance use, using safety plan if needed, utilizing supports, taking medication, and using coping skills. Modifiable risk factors of SI and depression were addressed during hospitalization through development of new coping skills, safety planning, and medication adjustments. Risk Factors Assessment Male: No : Yes Do You Have Access To A Gun?: No Health Problems: No Mental Health Diagnoses: Yes Substance Use Disorders: Yes Previous Attempt: Yes Family History of Suicide: Yes Previous Psychiatric Hospitalization: Yes Hopelessness: No Protective Factors Assessment Responsible for Young Children: Yes Employed: No Stable Relationships: Yes Tobacco Cessation at Discharge Tobacco Cessation Medication Prescribed at Discharge: Offered & Pt Refused Discharge Data Lab Results 10/22/22 10/22/22 10/22/22 13:44 13:44 13:44 WBC 9.07 RBC 4.01 L Hgb 12.7 Hct 38.0 MCV 94.8 MCH 31.7 MCHC 33.4 RDW Std Deviation 44.5 RDW Coeff of Amari 12.7 Plt Count 260 MPV 9.5 Immature Gran % (Auto) 0.7 Neut % (Auto) 68.5 Lymph % (Auto) 22.6 Mcmullen % (Auto) 7.1 Eos % (Auto) 0.9 Baso % (Auto) 0.2 Neut # (Auto) 6.22 Lymph # (Auto) 2.05 Mcmullen # (Auto) 0.64 H Eos # (Auto) 0.08 Baso # (Auto) 0.02 Immature Gran # (Auto) 0.06 Sodium 137 Potassium 3.1 L Chloride 102 Carbon Dioxide 29 Anion Gap 6 BUN 7 Creatinine 0.49 L Est Cr Clr Drug Dosing 182.1 Est GFR ( Amer) > 150.0 Est GFR (Non-Af Amer) 135.4 BUN/Creatinine Ratio 14.3 Glucose 92 Calcium 9.8 Total Bilirubin 0.5 AST 11 L ALT 15 Alkaline Phosphatase 48 Total Protein 7.6 Albumin 4.3 Globulin 3.3 Albumin/Globulin Ratio 1.3 TSH 1.124 Urine Color Urine Appearance Urine pH Ur Specific [place] Urine Protein Urine Glucose (UA) Urine Ketones Urine Blood Urine Nitrite Urine Bilirubin Urine Urobilinogen Ur Leukocyte Esterase Urine WBC (Auto) Urine RBC (Auto) U Hyaline Cast (Auto) U Epithel Cells (Auto) Urine Bacteria (Auto) Nasal Screen MRSA (PCR) Salicylates Urine Opiates Screen Ur Methadone, Qual Acetaminophen Urine Barbiturates Ur Phencyclidine (PCP) U Amphetamines Confirm U Amphetamin/Meth Scrn U Methamphetamin Confrm MDMA (Ecstasy) Screen U Benzodiazepines Scrn Ur Cocaine Metabolite U Marijuana (THC) Screen U Marijuana THC Carboxy Drug Screen Comment Ethyl Alcohol mg/dL SARS-CoV-2, RNA, NAAT 10/22/22 10/22/22 10/22/22 13:44 13:44 13:44 WBC RBC Hgb Hct MCV MCH MCHC RDW Std Deviation RDW Coeff of Amari Plt Count MPV Immature Gran % (Auto) Neut % (Auto) Lymph % (Auto) Mcmullen % (Auto) Eos % (Auto) Baso % (Auto) Neut # (Auto) Lymph # (Auto) Mcmullen # (Auto) Eos # (Auto) Baso # (Auto) Immature Gran # (Auto) Sodium Potassium Chloride Carbon Dioxide Anion Gap BUN Creatinine Est Cr Clr Drug Dosing Est GFR ( Amer) Est GFR (Non-Af Amer) BUN/Creatinine Ratio Glucose Calcium Total Bilirubin AST ALT Alkaline Phosphatase Total Protein Albumin Globulin Albumin/Globulin Ratio TSH Urine Color Dark Yellow Urine Appearance Cloudy A Urine pH 6.0 Ur Specific [place] 1.027 Urine Protein Negative Urine Glucose (UA) Negative Urine Ketones 1+ H Urine Blood Negative Urine Nitrite Negative Urine Bilirubin Negative Urine Urobilinogen Negative Ur Leukocyte Esterase 2+ H Urine WBC (Auto) >30 H Urine RBC (Auto) 0-4 U Hyaline Cast (Auto) 1-5 U Epithel Cells (Auto) >30 H Urine Bacteria (Auto) 2+ H Nasal Screen MRSA (PCR) Salicylates < 3.0 L Urine Opiates Screen Ur Methadone, Qual Acetaminophen < 3 L Urine Barbiturates Ur Phencyclidine (PCP) U Amphetamines Confirm U Amphetamin/Meth Scrn U Methamphetamin Confrm MDMA (Ecstasy) Screen U Benzodiazepines Scrn Ur Cocaine Metabolite U Marijuana (THC) Screen U Marijuana THC Carboxy Drug Screen Comment Ethyl Alcohol mg/dL < 10.0 SARS-CoV-2, RNA, NAAT 10/22/22 10/22/22 10/22/22 13:44 13:44 16:15 WBC RBC Hgb Hct MCV MCH MCHC RDW Std Deviation RDW Coeff of Amari Plt Count MPV Immature Gran % (Auto) Neut % (Auto) Lymph % (Auto) Mcmullen % (Auto) Eos % (Auto) Baso % (Auto) Neut # (Auto) Lymph # (Auto) Mcmullen # (Auto) Eos # (Auto) Baso # (Auto) Immature Gran # (Auto) Sodium Potassium Chloride Carbon Dioxide Anion Gap BUN Creatinine Est Cr Clr Drug Dosing Est GFR ( Amer) Est GFR (Non-Af Amer) BUN/Creatinine Ratio Glucose Calcium Total Bilirubin AST ALT Alkaline Phosphatase Total Protein Albumin Globulin Albumin/Globulin Ratio TSH Urine Color Urine Appearance Urine pH Ur Specific [place] Urine Protein Urine Glucose (UA) Urine Ketones Urine Blood Urine Nitrite Urine Bilirubin Urine Urobilinogen Ur Leukocyte Esterase Urine WBC (Auto) Urine RBC (Auto) U Hyaline Cast (Auto) U Epithel Cells (Auto) Urine Bacteria (Auto) Nasal Screen MRSA (PCR) Salicylates Urine Opiates Screen Neg Ur Methadone, Qual Neg Acetaminophen Urine Barbiturates Neg Ur Phencyclidine (PCP) Neg U Amphetamines Confirm 1425 H U Amphetamin/Meth Scrn Pos H U Methamphetamin Confrm 23801 H MDMA (Ecstasy) Screen Neg U Benzodiazepines Scrn Neg Ur Cocaine Metabolite Neg U Marijuana (THC) Screen Pos H U Marijuana THC Carboxy 1717 H Drug Screen Comment SEE NOTE Ethyl Alcohol mg/dL SARS-CoV-2, RNA, NAAT NEGATIVE 10/23/22 18:15 WBC RBC Hgb Hct MCV MCH MCHC RDW Std Deviation RDW Coeff of Amari Plt Count MPV Immature Gran % (Auto) Neut % (Auto) Lymph % (Auto) Mcmullen % (Auto) Eos % (Auto) Baso % (Auto) Neut # (Auto) Lymph # (Auto) Mcmullen # (Auto) Eos # (Auto) Baso # (Auto) Immature Gran # (Auto) Sodium Potassium Chloride Carbon Dioxide Anion Gap BUN Creatinine Est Cr Clr Drug Dosing Est GFR ( Amer) Est GFR (Non-Af Amer) BUN/Creatinine Ratio Glucose Calcium Total Bilirubin AST ALT Alkaline Phosphatase Total Protein Albumin Globulin Albumin/Globulin Ratio TSH Urine Color Urine Appearance Urine pH Ur Specific [place] Urine Protein Urine Glucose (UA) Urine Ketones Urine Blood Urine Nitrite Urine Bilirubin Urine Urobilinogen Ur Leukocyte Esterase Urine WBC (Auto) Urine RBC (Auto) U Hyaline Cast (Auto) U Epithel Cells (Auto) Urine Bacteria (Auto) Nasal Screen MRSA (PCR) Negative Salicylates Urine Opiates Screen Ur Methadone, Qual Acetaminophen Urine Barbiturates Ur Phencyclidine (PCP) U Amphetamines Confirm U Amphetamin/Meth Scrn U Methamphetamin Confrm MDMA (Ecstasy) Screen U Benzodiazepines Scrn Ur Cocaine Metabolite U Marijuana (THC) Screen U Marijuana THC Carboxy Drug Screen Comment Ethyl Alcohol mg/dL SARS-CoV-2, RNA, NAAT Hospital Course (1) Recurrent severe major depressive disorder with anxiety: (2) Depression affecting : (3) Borderline personality disorder: (4) Methamphetamine use: (5) Cannabis use disorder: Plan 10/28/22: Continue current medications and tx plan. 10/27/22: Continue current medications and tx plan. 10/26/22: Increase sertraline to 50mg qd starting tomorrow. 10/25/22: Continue current medications and tx plan. Ongoing motivational interviewing. Consider increase of sertraline tomorrow. 10/24/22: Continue with sertraline 25mg qd. 10/23/2022: The patient was admitted to the [facility] ([facility] health unit) on q15 min checks (behavioral with suicide precautions) for safety. The patient will participate in group, recreational, and milieu therapies and will be offered additional individual and family sessions as clinically appropriate. -Start sertraline 25mg qd -Provide with Margi BPD screening tool -CYS report made by social psychologist Mental Health & Subst Abuse Tx Psychiatrist Name of Psychiatrist: Lana Psychiatrist's Date Of Appointment With Psychiatric Provider: 11/04/22 Time of Appointment with Psychiatrist: 9:30am [facility] Supervisor Name of Service And Repair Supervisor: [facility] Case Management Phone Number for Service And Repair Supervisor: Date of Appointment with Service And Repair Supervisor: 10/30/22 Time of Appointment with Service And Repair Supervisor: 1:00 PM Case Management Appointment Comment: [address] [facility], [place] [id number] Post Discharge Appointments Primary Care Physician Name Of Family Doctor/PCP: MYLA Primary [facility] Time of Appointment with PCP: Follow up as needed Provider Appointment Comment[facility] [address] [place] [address] Smoking Cessation Counseling Tobacco Cessation Medication Prescribed at Discharge: Offered & Pt Refused Other #1: Name of Aftercare Appointment: MYLA Garcia Phone Number of Aftercare Appointment: [phone] Date of Aftercare Appointment: 10/31/22 Time of Aftercare Appointment: 11:40 AM Aftercare Appointment Comment: [address] [facility] [address] [address] #2: Name of Aftercare Appointment: [employer] (rent assistance) Phone Number of Aftercare Appointment: [phone] Time of Aftercare Appointment: follow up for more information #3: Name of Aftercare Appointment: [place] [facility] (possible assistance with housing) Phone Number of Aftercare Appointment: [phone] Time of Aftercare Appointment: follow up for more information Contact Information Discharge Discharge Plan Discharge Items Patient Disposition: Home - Self-Care Reason For Visit: DEPRESSION NOS Discharge Diagnosis: Major Depressive Disorder Activity: Resume your previous activity Non-emergency contact: Primary Care Provider, Psychiatrist and Dairy Equipment Installer Call non-emergency contact if: you have any medication questions and your symptoms worsen Follow-up/Referrals: Eileen Mcdermott MD [Primary Care Provider] - Diet: Regular Addtl Attending Provider Instructions: SPECIAL CARE INSTRUCTIONS: 1. Follow through with your scheduled aftercare appointments. If unable to keep an appointment, please call to reschedule. 2. Take your medication only as prescribed. Medication should not be changed or stopped without the approval of your doctor. In the event of worsening symptoms or concerns about side effects, contact your doctor immediately. 3. Utilize new healthy coping skills, anger management skills, and stress management skills learned during your hospitalization. Journal feelings and process them with a support person. Identify stressors or situations that may result in relapse, deterioration or inappropriate behaviors and develop a plan to deal with those issues. 4. If your coping skills are ineffective and you are in crisis, contact your outpatient providers for direction. If unable to reach your providers, please call the [facility] CRISIS LINE AT , go to the [facility] walk-in center at [address] [place] [address] A, [place], or go to the closest Emergency Room. 5. Avoid alcohol and un-prescribed drugs. 6. You have been provided with the Mental Health Advance Directives Pamphlet for your review. 7. Your condition is stable for discharge to outpatient level of care, but recovery is an ongoing process. Ifthoughts to harm yourself or others return, follow the safety plan developed during your stay. Planning for a safe return home includes securing weapons. Our treatment team recommends weaponsbe removed from the home until your outpatient provider reassesses your progress. In rare cases where the items themselvescannot be removed, guns and ammunitionshould be secured separatelyand keys stored by a reliable personoutside of the home. If you were admitted on an involuntary commitment, the police or other legal authorities may be involved in this process. AFTERCARE APPOINTMENTS: * Please call your insurance company prior to your scheduled appointment to confirm your aftercare providers are covered. Take your insurance information to your appointments. WHO TO CALL AND WHEN: Medical Emergencies: For questions or emergencies related to your hospital stay, please contact the Inpatient Behavioral Health Unit at [phone]. A compression molding machine operator is on-call 14/04 for the Behavioral Health Unit for emergencies At any time you feel your situation is an emergency, you may also call 911 immediately. Pending Studies at Discharge: No Stand-Alone Forms: My [employer], Smoking Cessation Medications and DC Order Prescriptions: New olanzapine 5 mg Tablet 5 mg PO DAILY PRN (Reason: agitation) 30 Days Qty: 15 0RF sertraline 50 mg Tablet 50 mg PO QAM 30 Days Qty: 30 0RF Continued prenat.vits,ravi,[id number] Tablet 1 tab PO DAILY Discharge Orders: Discharge Order (Routine); Ordered 10/29/22 Ordered By: Lucy Granados/Other Patient Handouts: Be Smoke-Free During Admission Data Admit Date/Time: 10/22/22 19:15 Attending Provider: Lucy Mi Admit Provider: Davin Miller Primary Care Provider: Eileen Mcdermott Other Interventions: Discharge Summary Assessment (RN) Last Done: 10/29/22 11:53 PSY Interdisciplinary Discharge Planning Last Done: 10/28/22 10:01 Coding Level of Care Code 06268 D/C day mgmt > 30 min Diagnoses Recurrent severe major depressive disorder with anxiety F33.2; F41.9 Depression affecting O99.340; F32.A Borderline personality disorder F60.3 Methamphetamine use F15.10 Cannabis use disorder F12.90 Time Spent (min) 40
== END 2022-10-29 13:30 | disposition home or self-care (01) | DRG 885 ==
LOC: ED 13:20 → 3S 19:15